=== PATIENT | female | born 1945 | race Caucasian/White ===

== ENCOUNTER 2016-03-17 13:37 | Inpatient (IN) | payer MEDICARE, BC ==
[~2016-03-17] VITALS: Ht 157.5 cm; Wt 62.1 kg
[2016-03-17] MEDS ORDERED: KCL 20 MEQ PACK ONE (15:32)
[2016-03-17] MEDS ORDERED: ONDANSETRON 4 MG VIAL IV PRN (19:30)
[2016-03-17] MEDS ORDERED: BISACODYL EC 5 MG TAB PO PRN (19:30)
[2016-03-17] MEDS ORDERED: SALINE FLUSH 10 ML FLUSH PRN (19:30)
[2016-03-17] MEDS ORDERED: DEXTROSE 50% SYRINGE 50 ML IV PRN (19:30)
[2016-03-17] MEDS ORDERED: BISACODYL 10 MG SUPP RECTAL PRN (19:30)
[2016-03-17] MEDS ORDERED: ALU/MAG/SIM 30 ML UDC PO PRN (19:30)
[2016-03-17] MEDS ORDERED: SODIUM CHLORIDE 0.9% 1,000 ML IV SCH (19:30)
[2016-03-17] MEDS ORDERED: GLUCAGON 1 MG VIAL IM PRN (19:30)
[2016-03-17] MEDS ORDERED: MAG HYDROX 30 ML UDC PO PRN (19:30)
[2016-03-17 21:25] VITALS: BP_SYST 130; BP_SYST 132; RESP 18; TEMP 98.2
[2016-03-17 21:26] VITALS: Ht 157.5 cm; Wt 62.1 kg
[2016-03-17] MEDS: POTASSIUM CHLORIDE PREMIX 50 ML IV SCH ×2 (21:35→23:53)
[2016-03-17] MEDS: SALINE FLUSH 10 ML FLUSH SCH (21:38)
[2016-03-17 23:41] VITALS: BP_SYST 118; RESP 16; TEMP 98.5
[2016-03-17 23:43] VITALS: BP_SYST 115; BP_SYST 118
[2016-03-18] VITALS (7 sets, daily range): BP systolic 136–152; RESP 16–18; TEMP 97.3–98.5
[2016-03-18] MEDS: POTASSIUM CHLORIDE PREMIX 50 ML IV SCH ×2 (00:49→02:01)
[2016-03-18] MEDS: SODIUM CHLORIDE 0.9% FLUSH BAG 500 ML IV SCH (05:50)
[2016-03-18] MEDS: SALINE FLUSH 10 ML FLUSH SCH ×2 (08:00→23:04)
[2016-03-18] MEDS ORDERED: KCL CR 10 MEQ CAP PO ONE (10:20)
[2016-03-18] MEDS: CEFTRIAXONE 1 GM in SODIUM CHLORIDE 0.9% 50 ML IV SCH (11:29)
[2016-03-19] VITALS (7 sets, daily range): BP systolic 128–166; RESP 16–18; TEMP 97.7–99.1
[2016-03-19] MEDS: SODIUM CHLORIDE 0.9% FLUSH BAG 500 ML IV SCH (06:29)
[2016-03-19] MEDS ORDERED: LEVOTHYROXINE 0.112 MG TAB PO SCH (07:00)
[2016-03-19] MEDS: SALINE FLUSH 10 ML FLUSH SCH ×2 (10:10→21:32)
[2016-03-19] MEDS: CEFTRIAXONE 1 GM in SODIUM CHLORIDE 0.9% 50 ML IV SCH (10:10)
[2016-03-19] MEDS ORDERED: KCL CR 10 MEQ CAP PO ONE (10:15)
[2016-03-19] MEDS: DULoxetine 30 MG CAP PO SCH (11:24)
[2016-03-19] MEDS: BUPROPION SR 150 MG TAB PO SCH ×2 (11:25→21:33)
[2016-03-19] MEDS: [UNRECOGNIZED DRUG - OTHER] PO SCH (11:26)
[2016-03-19] MEDS: Estradiol 1 MG TAB PO SCH (11:26)
[2016-03-19] MEDS: FLINTSTONES COMPLETE PO SCH (11:27)
[2016-03-19] MEDS: LEVOTHYROXINE 0.125 MG TAB PO SCH (11:27)
[2016-03-19] MEDS: NEBIVOLOL 2.5 MG TAB PO SCH (11:27)
[2016-03-19] MEDS: ALLOPURINOL 100 MG TAB PO SCH (11:28)
[2016-03-19] MEDS: SITAGLIPTIN 50 MG TAB PO SCH (11:28)
[2016-03-19] MEDS: MONTELUKAST 10 MG TAB PO SCH (11:28)
[2016-03-19] MEDS: clonazePAM 0.5 MG TAB PO SCH ×2 (17:59→21:33)
[2016-03-19] MEDS ORDERED: risperiDONE 0.25 MG TAB PO SCH (21:00)
[2016-03-19] MEDS ORDERED: LEVEMIR INSULIN SUBQ SCH (21:00)
[2016-03-19] MEDS ORDERED: TRAZODONE 50 MG TAB PO SCH (21:00)
[2016-03-20 03:57] VITALS: BP_SYST 142; RESP 18; TEMP 97.9
[2016-03-20] MEDS: SODIUM CHLORIDE 0.9% FLUSH BAG 500 ML IV SCH (06:26)
[2016-03-20] MEDS: LEVOTHYROXINE 0.125 MG TAB PO SCH (06:26)
[2016-03-20 07:27] VITALS: BP_SYST 152; RESP 16; TEMP 98.8
[2016-03-20] MEDS: [UNRECOGNIZED DRUG - OTHER] PO SCH (08:18)
[2016-03-20] MEDS: ALLOPURINOL 100 MG TAB PO SCH (08:18)
[2016-03-20] MEDS: DULoxetine 30 MG CAP PO SCH (08:19)
[2016-03-20] MEDS: NEBIVOLOL 2.5 MG TAB PO SCH (08:19)
[2016-03-20] MEDS: BUPROPION SR 150 MG TAB PO SCH (08:20)
[2016-03-20] MEDS: Estradiol 1 MG TAB PO SCH (08:20)
[2016-03-20] MEDS: MONTELUKAST 10 MG TAB PO SCH (08:20)
[2016-03-20] MEDS: SITAGLIPTIN 50 MG TAB PO SCH (08:20)
[2016-03-20] MEDS: FLINTSTONES COMPLETE PO SCH (08:20)
[2016-03-20] MEDS: CEFTRIAXONE 1 GM in SODIUM CHLORIDE 0.9% 50 ML IV SCH (08:26)
[2016-03-20] MEDS: clonazePAM 0.5 MG TAB PO SCH ×2 (08:26→17:16)
[2016-03-20] MEDS: SALINE FLUSH 10 ML FLUSH SCH (10:47)
[2016-03-20 11:44] VITALS: BP_SYST 136; RESP 18; TEMP 97.8
[2016-03-20 16:34] VITALS: BP_SYST 138; RESP 18; TEMP 97.7
[2016-03-20 17:54] VITALS: BP_SYST 138; RESP 18; TEMP 97.7
== END 2016-03-20 20:15 | DRG 682 ==
LOC: ENRESERVTM → ENRESERVDT → ER 13:37 → EMR 18:41 → 4THW 20:44 → ENPENDDIS 03-18 18:17 → OBSVTOIN 03-18 18:17 → EDPENDDISTM 03-18 18:17 → UNDODISIN 03-20 20:15
PROVIDERS: ADMIT Internal Medicine; ATTEND Internal Medicine
DX: N17.9 Acute kidney failure, unspecified (principal); G92 Toxic encephalopathy; E11.42 Type 2 diabetes mellitus with diabetic polyneuropathy; I13.0 Hypertensive heart and chronic kidney disease with heart failure and stage 1 through stage 4 chronic kidney disease, or unspecified chronic kidney disease; I50.9 Heart failure, unspecified; N39.0 Urinary tract infection, site not specified; T79.6XXA Traumatic ischemia of muscle, initial encounter; W01.0XXA Fall on same level from slipping, tripping and stumbling without subsequent striking against object, initial encounter; E87.6 Hypokalemia; J44.9 Chronic obstructive pulmonary disease, unspecified; M81.0 Age-related osteoporosis without current pathological fracture; Z79.84 Long term (current) use of oral hypoglycemic drugs; N18.9 Chronic kidney disease, unspecified; E86.0 Dehydration; M79.7 Fibromyalgia; G89.4 Chronic pain syndrome; I25.10 Atherosclerotic heart disease of native coronary artery without angina pectoris; E03.9 Hypothyroidism, unspecified; F41.9 Anxiety disorder, unspecified; F32.9 Major depressive disorder, single episode, unspecified; M10.9 Gout, unspecified; E55.9 Vitamin D deficiency, unspecified; T42.3X5A Adverse effect of barbiturates, initial encounter
CPT/HCPCS: 36415; 36600; 70450; 72050; 80048; 80053; 80307; 81001; 82550; 82553; 82803; 82947; 83605; 83735; 83880; 84132; 84439; 84443; 84484; 85025; 85610; 85730; 87088; 93005; 94799; 99220; 99233